=== PATIENT | female | born 1970 ===

== ENCOUNTER 2017-05-03 18:02 | Observation (INO) | payer OTHER ==
[2017-05-03 18:02] VITALS: BMI 29.2
[2017-05-03] MEDS ORDERED: Sodium Chloride 0.9% 1,000 ML IV STA (18:29)
[2017-05-03 18:56] LABS: BASO # 0.1 K/uL (0.0-0.2); BASO % 0.9 % (0.0-2.0); EOS % 0.2 % (0.0-4.0); HEMOGLOBIN 13.3 g/dL (12.0-16.0); LYMPH # 1.5 K/uL (1.0-4.3); LYMPH % 16.1 % (20.0-40.0); MEAN CORPUSCULAR HEMOGLOBIN 24.4 pg (27.0-31.0); MEAN CORPUSCULAR HGB CONC 32.5 g/dL (33.0-37.0); MONO # 0.5 K/uL (0.0-0.8); MONO % 5.1 % (0.0-10.0); NEUT # 7.1 K/uL (1.8-7.0); NEUT % 77.7 % (50.0-75.0); RBC 5.45 Mil/uL (3.80-5.20); RED CELL DISTRIBUTION WIDTH 15.1 % (11.5-14.5); WHITE BLOOD COUNT 9.1 K/uL (4.8-10.8)
[2017-05-03 19:05] LABS: ALB/GLOB RATIO 1.2 (1.0-2.1); ALBUMIN 5.1 g/dL (3.5-5.0); ALT/SGPT 35 U/L (9-52); AST/SGOT 34 U/L (14-36); BLOOD UREA NITROGEN 12 mg/dl (7-17); CALCIUM 9.3 mg/dL (8.4-10.2); GFR AFRICAN-AMERICAN > 60; GFR NON-AFRICAN AMERICAN > 60; LIPASE 124 U/L (23-300)
--- NOTE | 2017-05-03 19:11 | ED PDOC ---
HPI: Abdomen Time Seen by Provider: 05/03/17 18:12 Chief Complaint (Nursing): Abdominal Pain Chief Complaint (Provider): Abdominal Pain and Vomiting History Per: Patient History/Exam Limitations: no limitations Onset/Duration Of Symptoms: Hrs Outside of [place] travel?: No Current Symptoms Are (Timing): Still Present Associated Symptoms: Vomiting. denies: Diarrhea Additional Complaint(s): Abigail Pope, a 47 year old female, patient presents to the ED with abdominal pain and vomiting she has been experiencing since around 1pm today. The patient states that along with these symptoms she's experiencing tingling in both of her hands. At home patient takes medications for hyperlipidemia, diabetes and hypertension. Denies chest pain, shortness of breath, headache but does report frequent urination, nausea and lightheadedness. PMD: Dr. Pinzon Past Medical History Reviewed: Historical Data, Nursing Documentation, Vital Signs Vital Signs: Last Vital Signs Temp 98.2 F 05/03/17 18:07 Pulse 119 H 05/03/17 18:07 Resp 16 05/03/17 18:07 BP 157/85 H 05/03/17 18:07 Pulse Ox 100 05/03/17 19:17 - Medical History PMH: Arthritis, Diabetes, HTN, Hypercholesterolemia - Surgical History Surgical History: (x 1) - Family History Family History: States: Unknown Family Hx - Living Arrangements Living Arrangements: With Family - Social History Current smoker - smoking cessation education provided: No Alcohol: None Drugs: Denies - Home Medications Home Medications: Ambulatory Orders Medication Instructions Recorded Pioglitazone Hydrochloride [Actos] 30 mg PO DAILY 03/14/15 Enalapril Maleate 5 mg PO DAILY 09/02/15 Metformin ER [Glucophage XR] 1,000 mg PO BID 09/02/15 Sitagliptin Phosphate [Januvia] 100 mg PO DAILY 09/02/15 Acetaminophen [Tylenol 325mg tab] 650 mg PO Q4 #0 tab 09/06/15 Ibuprofen [Motrin Tab] 800 mg PO Q8 #0 tab 09/06/15 - Allergies Allergies/Adverse Reactions: Allergies Allergy/AdvReac Type Severity Reaction Status Date / Time No Known Allergies Allergy Verified 05/03/17 18:07 Review of Systems ROS Statement: Except As Marked, All Systems Reviewed And Found Negative Constitutional: Positive for: Weakness Gastrointestinal: Positive for: Nausea, Vomiting, Abdominal Pain Genitourinary Female: Positive for: Frequency Neurological: Positive for: Weakness, Dizziness, Other (lightheadedness; tingling in both hands.) Physical Exam - Reviewed Nursing Documentation Reviewed: Yes Vital Signs Reviewed: Yes - Physical Exam Appears: Positive for: Non-toxic, No Acute Distress Head Exam: Positive for: ATRAUMATIC, NORMAL INSPECTION, NORMOCEPHALIC Skin: Positive for: Normal Color, Warm, Dry Eye Exam: Positive for: Normal appearance, EOMI, PERRL ENT: Positive for: Normal ENT Inspection Neck: Positive for: Normal, Painless ROM, Supple Cardiovascular/Chest: Positive for: Regular Rate, Rhythm, Chest Non Tender. Negative for: Tachycardia Respiratory: Positive for: Normal Breath Sounds. Negative for: Wheezing, Respiratory Distress Gastrointestinal/Abdominal: Positive for: Bowel Sounds, Soft, Tenderness (Mild tenderness to upper abdomen.) Back: Positive for: Normal Inspection. Negative for: L CVA Tenderness, R CVA Tenderness Extremity: Positive for: Normal ROM. 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 Negative for: Motor/Sensory Deficits - Laboratory Results Result Diagrams: 05/03/17 18:30 05/03/17 18:30 Interpretation Of Abn Labs: 19 CO2 - ECG ECG: Positive for: Interpreted By Me, Viewed By Me ECG Rhythm: Positive for: Normal QRS, Normal ST Segment, Sinus Rhythm O2 Sat by Pulse Oximetry: 100 (RA) Pulse Ox Interpretation: Normal - Radiology X-Ray: Interpreted by Me, Viewed By Me X-Ray Interpretation: No Acute Disease - Progress ED Course And Treament: 2039: Stable. Spoke with Dr. Rodriges. Will admit. Tele. AAOx3. Needs further management for diabetes and gastroparesis. Medical Decision Making Medical Decision Making: Initial Impression: 47 year old female presenting with abdominal pain and vomiting Initial Plan: * VBG * EKG * CMP * Lipase * Troponin 1 * Udip * CBC * Partial thromboplastin time * CXR * NS 1000ml IV 1000mls/hr * Zofran 4 mg IV * Urinalysis * Reevaluation Scribe Attestation Documented by Meghana Kimball acting as a scribe for Aquiles Fuentes MD. Provider Attestation: All medical record entries made by the Scribe were at my direction and personally dictated by me. I have reviewed the chart and agree that the record accurately reflects my personal performance of the history, physical exam, medical decision making, and the department course for this patient. I have also personally directed, reviewed, and agree with the discharge instructions and disposition. Disposition - Clinical Impression Clinical Impression: Gastroparesis, Dehydration, Hyperglycemia - Patient ED Disposition Is Patient to be Admitted: Yes Counseled Patient/Family Regarding: Studies Performed, Diagnosis - Disposition Disposition Time: 20:41 Condition: FAIR - Pt Status Changed To: Hospital Disposition Of: Observation - POA Present On Arrival: Poor Glycemic Control
[2017-05-03 19:15] LABS: SQUAMOUS EPITHIAL 4 /hpf (0-5); URINE BACTERIA RARE (<OCC); URINE BILIRUBIN NEGATIVE (NEGATIVE); URINE BLOOD NEGATIVE (NEGATIVE); URINE CLARITY SLIGHTY-CLOUDY (Clear); URINE COLOR YELLOW (YELLOW); URINE GLUCOSE (UA) >=500 mg/dL (Normal); URINE LEUKOCYTE ESTERASE TRACE Leu/uL (Negative); URINE NITRATE NEGATIVE (NEGATIVE); URINE PROTEIN 100 mg/dL (NEGATIVE); URINE UROBILINOGEN 0.2-1.0 mg/dL (0.2-1.0)
[2017-05-03 19:18] LABS: INR 1.1 (0.9-1.2); PROTHROMBIN TIME 12.5 Seconds (9.8-13.1)
[2017-05-03 19:31] LABS: VENOUS BLOOD GAS BASE EXCESS -1.7 mmol/L (0.0-2.0); VENOUS BLOOD GAS PCO2 34 mmHg (40-60); VENOUS BLOOD GAS PO2 39 mm/Hg (30-55); VENOUS BLOOD PH 7.42 (7.32-7.43)
[2017-05-03] MEDS ORDERED: Sodium Chloride 0.9% 500 ML IV STA (20:44)
[2017-05-04 08:16] LABS: HEMOGLOBIN 11.9 g/dL (12.0-16.0); MEAN CELL VOLUME 76.3 fl (81.0-99.0); MEAN CORPUSCULAR HEMOGLOBIN 24.8 pg (27.0-31.0); MEAN CORPUSCULAR HGB CONC 32.5 g/dL (33.0-37.0); RBC 4.81 Mil/uL (3.80-5.20); RED CELL DISTRIBUTION WIDTH 15.1 % (11.5-14.5); WHITE BLOOD COUNT 7.9 K/uL (4.8-10.8)
[2017-05-04 08:19] LABS: ALB/GLOB RATIO 1.2 (1.0-2.1); ALBUMIN 3.9 g/dL (3.5-5.0); ALT/SGPT 26 U/L (9-52); AST/SGOT 27 U/L (14-36); BLOOD UREA NITROGEN 12 mg/dl (7-17); CALCIUM 8.1 mg/dL (8.4-10.2); GFR AFRICAN-AMERICAN > 60; GFR NON-AFRICAN AMERICAN > 60
[2017-05-04] MEDS ORDERED: Lactated Ringer's 500 ML IV ONE (09:00)
--- NOTE | 2017-05-04 09:00 | RAD ---
HISTORY: epigastric pain COMPARISON: No prior. FINDINGS: LUNGS: No active pulmonary disease. PLEURA: No significant pleural effusion identified, no pneumothorax apparent. CARDIOVASCULAR: Normal. OSSEOUS STRUCTURES: No significant abnormalities. VISUALIZED UPPER ABDOMEN: Normal. OTHER FINDINGS: None. IMPRESSION: No active disease.
--- NOTE | 2017-05-04 09:05 | CP.PCM.CON ---
History of Present Illness - History of Present Illness History of Present Illness: 47 yo female admitted with abominal pain and nausea. Patient states there was red blood in the emesis. Abdominal pain is epigastric and lower abdominal. H/o diabetes. Review of Systems - Constitutional Constitutional: absent: Chills - EENT Eyes: absent: Blurred Vision Ears: absent: Decreased Hearing Nose/Mouth/Throat: absent: Epistaxis - Cardiovascular Cardiovascular: absent: Chest Pain - Respiratory Respiratory: absent: Dyspnea - Gastrointestinal Gastrointestinal: As Per HPI Past Patient History - Past Medical History & Family History Past Medical History?: Yes - Past Social History Smoking Status: Never Smoked - CARDIAC Hx Cardiac Disorders: Yes - ENDOCRINE/METABOLIC Hx Endocrine Disorders: Yes - MUSCULOSKELETAL/RHEUMATOLOGICAL Hx Arthritis: Yes Hx Falls: No - GENITOURINARY/GYNECOLOGICAL Other/Comment: C SECTION X1 - PSYCHIATRIC Hx Substance Use: No - SURGICAL HISTORY Hx Section: Yes - ANESTHESIA Hx Anesthesia: Yes Hx Anesthesia Reactions: No Meds Allergies/Adverse Reactions: Allergies Allergy/AdvReac Type Severity Reaction Status Date / Time No Known Allergies Allergy Verified 05/03/17 18:07 - Medications Medications: Current Medications Ondansetron HCl (Zofran Inj) 4 mg IVP Q12 KING Physical Exam - Constitutional Appears: No Acute Distress - Head Exam Head Exam: ATRAUMATIC - Eye Exam Eye Exam: EOMI - ENT Exam ENT Exam: Mucous Membranes Moist - Respiratory Exam Respiratory Exam: Clear to Auscultation Bilateral - Cardiovascular Exam Cardiovascular Exam: REGULAR RHYTHM - GI/Abdominal Exam GI & Abdominal Exam: Normal Bowel Sounds, Soft. absent: Tenderness Results - Vital Signs Recent Vital Signs: Last Vital Signs Temp 99.1 F 05/04/17 08:00 Pulse 106 H 05/04/17 08:00 Resp 18 05/04/17 08:00 BP 123/80 05/04/17 08:00 Pulse Ox 97 05/04/17 08:00 - Labs Result Diagrams: 05/04/17 07:30 05/04/17 07:30 Labs: Laboratory Results - last 24 hr 05/04/17 05/04/17 05/04/17 05:43 07:30 07:30 WBC 7.9 RBC 4.81 Hgb 11.9 L Hct 36.7 MCV 76.3 L MCH 24.8 L MCHC 32.5 L RDW 15.1 H Plt Count 215 Sodium 142 Potassium 3.7 Chloride 111 H Carbon Dioxide 20 L Anion Gap 15 BUN 12 Creatinine 0.4 L Est GFR ( Amer) > 60 Est GFR (Non-Af Amer) > 60 POC Glucose (mg/dL) 111 H Random Glucose 114 H Calcium 8.1 L Total Bilirubin 0.7 AST 27 ALT 26 Alkaline Phosphatase 72 Total Protein 7.1 Albumin 3.9 Globulin 3.2 Albumin/Globulin Ratio 1.2 Assessment & Plan (1) Hematemesis Assessment and Plan: Hematemesis with mild anemia and low MCV. Will evaluate for ulcer or gastritis with upper endoscopy Status: Acute
[2017-05-04] MEDS ORDERED: Propofol 10 mg/ml Inj (20 ML) ONE (09:12)
[2017-05-04] MEDS ORDERED: Midazolam 2 MG/2 ML VIAL ONE (09:12)
[2017-05-04 09:40] VITALS: TEMP 98.2; O2SAT 100
[2017-05-04 09:49] VITALS: BP 127/78; PULSE 102; RESP 22
--- NOTE | 2017-05-04 10:17 | CP.PCM.HP ---
History of Present Illness - History of Present Illness History of Present Illness: 47F p/w crampy, epigastric abdominal pain since 1pm the day of the admission with nausea and NBNB vomiting of gastric contents. She denies any relation to food, sick contacts, SOB, chest pain/palpitations, dysuria, and denies diarrhea. Patient reports having the symptoms before and says she has problems with her digestion. Present on Admission - Present on Admission Any Indicators Present on Admission: Yes History of Uncontrolled Diabetes: Yes Review of Systems - Review of Systems All systems: reviewed and no additional remarkable complaints except - Gastrointestinal Gastrointestinal: Abdominal Pain (epigastric), Nausea, Vomiting Past Patient History - Past Medical History & Family History Past Medical History?: Yes - Past Social History Smoking Status: Never Smoked - CARDIAC Hx Cardiac Disorders: Yes - ENDOCRINE/METABOLIC Hx Endocrine Disorders: Yes - MUSCULOSKELETAL/RHEUMATOLOGICAL Hx Arthritis: Yes Hx Falls: No - GENITOURINARY/GYNECOLOGICAL Other/Comment: C SECTION X1 - PSYCHIATRIC Hx Substance Use: No - SURGICAL HISTORY Hx Section: Yes - ANESTHESIA Hx Anesthesia: Yes Hx Anesthesia Reactions: No Meds Allergies/Adverse Reactions: Allergies Allergy/AdvReac Type Severity Reaction Status Date / Time No Known Allergies Allergy Verified 05/03/17 18:07 Physical Exam - Constitutional Appears: Well, Non-toxic, No Acute Distress - Head Exam Head Exam: ATRAUMATIC, NORMAL INSPECTION - Eye Exam Eye Exam: EOMI, PERRL - ENT Exam ENT Exam: Mucous Membranes Moist, Normal Exam - Respiratory Exam Respiratory Exam: Clear to Auscultation Bilateral, NORMAL BREATHING PATTERN. absent: Rales, Wheezes - Cardiovascular Exam Cardiovascular Exam: REGULAR RHYTHM - GI/Abdominal Exam GI & Abdominal Exam: Normal Bowel Sounds, Soft, Tenderness (mild tenderness over epigastrum, no diaz's) Results - Vital Signs Recent Vital Signs: Last Vital Signs Temp 36.8 C 05/04/17 09:48 Pulse 102 H 05/04/17 09:48 Resp 22 05/04/17 09:48 BP 127/78 05/04/17 09:48 Pulse Ox 100 05/04/17 09:48 - Labs Result Diagrams: 05/04/17 07:30 05/04/17 07:30 Labs: Laboratory Results - last 24 hr 05/03/17 05/04/17 05/04/17 22:10 05:43 07:30 WBC 7.9 RBC 4.81 Hgb 11.9 L Hct 36.7 MCV 76.3 L MCH 24.8 L MCHC 32.5 L RDW 15.1 H Plt Count 215 Sodium Potassium Chloride Carbon Dioxide Anion Gap BUN Creatinine Est GFR ( Amer) Est GFR (Non-Af Amer) POC Glucose (mg/dL) 121 H 111 H Random Glucose Calcium Total Bilirubin AST ALT Alkaline Phosphatase Total Protein Albumin Globulin Albumin/Globulin Ratio 05/04/17 07:30 WBC RBC Hgb Hct MCV MCH MCHC RDW Plt Count Sodium 142 Potassium 3.7 Chloride 111 H Carbon Dioxide 20 L Anion Gap 15 BUN 12 Creatinine 0.4 L Est GFR ( Amer) > 60 Est GFR (Non-Af Amer) > 60 POC Glucose (mg/dL) Random Glucose 114 H Calcium 8.1 L Total Bilirubin 0.7 AST 27 ALT 26 Alkaline Phosphatase 72 Total Protein 7.1 Albumin 3.9 Globulin 3.2 Albumin/Globulin Ratio 1.2 Assessment & Plan - Assessment and Plan (Free Text) Assessment: 47F admitted with suspected gastroparesis and poorly controlled diabetes. - GI Consult - Reglan, IVF, Diet - Glucose control, Accu-check, hypoglycemic Bundle - DVT Prophylaxis - Resume home medications
[2017-05-04] MEDS ORDERED: Insulin Lispro (humaLOG) 100 Units/ml Inj SC SCH ×2 (11:58→16:30)
--- NOTE | 2017-05-04 17:19 | CARD ---
APPROVED REPORT EKG Measurement Heart [id number] <Conclusion> Sinus tachycardia Otherwise normal ECG
== END 2017-05-04 14:45 | disposition home or self-care (01) ==
LOC: H.ER 18:02 → H.ERHOLD 20:39 → H.TEL 05-04 00:27
PROVIDERS: ADMIT Family Medicine; ATTEND Family Medicine
DX: K92.0 Hematemesis (principal); E11.65 Type 2 diabetes mellitus with hyperglycemia; I10 Essential (primary) hypertension; E78.00 Pure hypercholesterolemia, unspecified; E78.5 Hyperlipidemia, unspecified; E86.0 Dehydration; M19.90 Unspecified osteoarthritis, unspecified site; K44.9 Diaphragmatic hernia without obstruction or gangrene; K29.50 Unspecified chronic gastritis without bleeding; D50.0 Iron deficiency anemia secondary to blood loss (chronic); K31.84 Gastroparesis